=== PATIENT | female | born 1960 | race Caucasian/White ===

== ENCOUNTER 2018-05-14 20:08 | Emergency (ER) | payer OTHER ==
[2018-05-14] MEDS ORDERED: diphenhydrAMINE 50 MG/ML SDV IVPUSH ONE (20:11)
[2018-05-14] MEDS ORDERED: LORazepam 2 MG/ML SDV IVPUSH ONE (20:11)
[2018-05-14] MEDS ORDERED: Metoclopramide 10 MG/2 ML SDV IVPUSH ONE (20:11)
--- NOTE | 2018-05-14 20:14 | EDM.PDOCBH ---
ED HPI GENERAL MEDICAL PROBLEM - General Chief Complaint: Behavioral/Psych Stated Complaint: [facility] Time Seen by Provider: 05/14/18 20:10 Source of Information: Reports: Patient, EMS History Limitations: Reports: No Limitations, Other (intial response was only a groan. She then would speak. Apologetic. ) - History of Present Illness INITIAL COMMENTS - FREE TEXT/NARRATIVE: 57-year-old female brought to the ED per [place] ambulance. He recalled to home in [place] where patient was found to be exhibiting altered level of consciousness. History was that she had fallen earlier in the day with contusion to the right occipital scalp. She has been drinking wine this evening at least 2 large glasses. She appeared to be dysarthric more than one would expect from the amount of alcohol reportedly ingested. Paramedics also identified her blood pressure be very high 180/120. Decision made over the phone to treat her conservatively and we would address the hypertension when she got here. Initially patient only moan and groan but then once I indicated that was much response she then began able to talk fairly normally. She was quite apologetic about her behavior. Paramedics indicate she was dispensing dry heaving and retching almost all the way from [place] to [place]. She has received Zofran 12 mg IV en route to [place]. Emesis was bilious without blood. Patient is alert and able to answer questions appropriately although speech is dysarthric. She does smell strongly of alcohol. Onset: Today Onset Date: 05/14/18 Onset Time: 18:45 Duration: Minutes: Location: Reports: Other Quality: Reports: Other (Reported fall at home earlier this evening with contusion to the right occipital scalp without reported loss of conscious.) Severity: Moderate (Intractable nausea and vomiting associated with hypertension.) Improves with: Reports: Other (She seems to be better in terms of the nausea and vomiting after Zofran has been given repeatedly by paramedics en route to [place]. I believe 12 mg of Zofran has been administered) Worsens with: Reports: None Context: Reports: Other (Bone essentially passed out at home and exhibiting altered level of consciousness. Was unclear if she may have taken too much gabapentin in combination with alcohol use.). Denies: Activity, Exercise, Sick Contact Associated Symptoms: Reports: Confusion ( 4 list of her medications are not yet available.), Nausea/Vomiting, Other (Altered level of consciousness moaning and groaning primarily.). Denies: Chest Pain, Cough, cough w sputum, Malaise Treatments [employer]: Reports: Other (see below) (Paramedics apparently gave her Zofran 12 mg IV en route to [place]) - Related Data Allergies Allergy/AdvReac Type Severity Reaction Status Date / Time No Known Allergies Allergy Verified 05/14/18 20:14 Home Meds: Home Meds Citalopram [Citalopram HBr] 20 mg PO DAILY 05/14/18 [History] Gabapentin [Neurontin] 300 mg PO BID 05/14/18 [History] Levothyroxine [Synthroid] 50 mcg PO ACBREAKFAST 05/14/18 [History] Pravastatin [Pravachol] 40 mg PO DAILY 05/14/18 [History] Past Medical History Cardiovascular History: Reports: Hypertension Psychiatric History: Reports: Anxiety, Depression, Other (See Below) (Alcohol abuse) Social & Family History - Living Situation & Occupation Living situation: Reports: Single Occupation: Unemployed ED ROS GENERAL - Review of Systems Review Of Systems: See Below Constitutional: Reports: Malaise, Weakness, Fatigue, Decreased Appetite. Denies : Fever, Chills HEENT: Reports: Other (Fall at home earlier tonight. Contusion right occipital scalp) Respiratory: Reports: Cough. Denies: Shortness of Breath, Wheezing, Pleuritic Chest Pain Cardiovascular: Reports: Blood Pressure Problem, Dyspnea on Exertion. Denies: Chest Pain, Claudication, Orthopnea Endocrine: Reports: Fatigue GI/Abdominal: Reports: Nausea, Vomiting (Intractable nausea and vomiting tonight. This postdates a fall at home earlier in the evening injuring her right occipital sscalp.) : Reports: Frequency Musculoskeletal: Reports: Back Pain, Leg Pain Skin: Reports: No Symptoms Neurological: Reports: Confusion, Trouble Speaking (Dysarthric speech), Difficulty Walking, Weakness. Denies: Headache (Mildly acutely confused but appears intoxicated this time), Numbness, Syncope, Tingling Psychiatric: Reports: Anxiety, Depression ED EXAM, BEHAVIORAL HEALTH - Physical Exam Exam: See Below Exam Limited By: Intoxication (I'll strongly of alcohol and dysarthric speech.) General Appearance: Anxious, Lethargic, Mild Distress (Mildly lethargic. White anxious. Very histrionic presentation.) Eye Exam: Bilateral Eye: Nystagmus (Bilateral on lateral gaze.) Ears: Normal TMs Nose: Normal Inspection Throat/Mouth: Normal Inspection, Normal Oropharynx, Other Head: Other (Tongue is mildly dry and coated breath smells strongly of alcohol. Have a small hematoma 2 cm over the right occipital prominence on examination.) Neck: Normal Inspection ( Minimal tenderness.), Supple, Non-Tender. No: Lymphadenopathy (L), Lymphadenopathy (R) Respiratory/Chest: Lungs Clear, Normal Breath Sounds, Chest Non-Tender, Respiratory Distress, Other Cardiovascular: Normal Peripheral Pulses (No evidence of chest wall injury.), Regular Rate, Rhythm, No Edema, No Gallop, No Murmur GI/Abdominal: Normal Bowel Sounds, Soft, Non-Tender, No Organomegaly, No Abnormal Bruit, No Mass, Pelvis Stable, Other (No peritoneal signs. No surgical scars.) Back Exam: Normal Inspection, Decreased Range of Motion. No: CVA Tenderness (L) , CVA Tenderness (R) Extremities: Normal Inspection, Normal Range of Motion, Non-Tender, No Pedal Edema, Other (No apparent injuries to either upper or lower extremities.) Neurological: Disoriented to Time. No: Extensor Response to Pain, Flexor Response to Pain, Withdraws to Pain, Dysarthria, Receptive Aphasia, Expressive Aphasia, Total Aphasia, Facial Palsy (R), Facial Palsy (L), Facial Palsy w Forehead Psychiatric: Restless, Tearful, Agitated, Other (Anxious and histrionic.) Skin Exam: Warm, Dry, Intact, Normal color, No rash EKG INTERPRETATION EKG Date: 05/14/18 Time: 20:47 Rhythm: NSR Rate (Beats/Min): 70 Blessing: Normal P-Wave: Present QRS: Other (Decreased voltage in the precordial leads with delayed transition. Early R-wave transition V2 consider septal hypertrophy) ST-T: Normal QT: Prolonged EKG Interpretation Comments: Borderline ECG COURSE, BEHAVIORAL HEALTH COMP - Course Vital Signs: Last Vital Signs Temp 36.4 C 05/14/18 20:09 Pulse 67 05/14/18 20:09 Resp 18 05/14/18 20:09 BP 133/87 05/14/18 20:09 Pulse Ox 96 05/14/18 20:09 Orders, Labs, Meds: Active Orders 24 hr Category Date Time Status Blood Glucose Check, Bedside [RC] ONETIME Care 05/14/18 20:12 Active EKG Documentation Completion [RC] STAT Care 05/14/18 20:12 Active Head wo Cont [CT] Stat Exams 05/14/18 20:13 Taken DRUG SCREEN, URINE [URCHEM] Stat Lab 05/14/18 20:12 Ordered GABAPENTIN, SERUM [REF] Stat Lab 05/14/18 20:25 Received Laboratory Tests 05/14/18 05/14/18 05/14/18 Range/Units 20:23 20:25 20:25 WBC 12.50 H (3.98-10.04) K/mm3 RBC 4.68 (3.98-5.22) M/mm3 Hgb 14.7 (11.2-15.7) gm/L Hct 43.8 (34.1-44.9) % MCV 93.6 (79.4-94.8) fl MCH 31.4 (25.6-32.2) pg MCHC 33.6 (32.2-35.5) g/dl RDW Std Deviation 45.9 (36.4-46.3) fL Plt Count 307 (182-369) K/mm3 MPV 9.7 (9.4-12.3) fl Neutrophils % (Manual) 69 H (40-60) % Band Neutrophils % 0 (0-10) % Lymphocytes % (Manual) 18 L (20-40) % Atypical Lymphs % 0 % Monocytes % (Manual) 8 (2-10) % Eosinophils % (Manual) 4 (0.7-5.8) % Basophils % (Manual) 1 (0.1-1.2) Platelet Estimate Adequate Plt Morphology Comment Normal RBC Morph Comment Normal PT (9.5-12.1) SECONDS INR APTT (24-31) SECONDS Sodium 141 (136-145) mEq/L Potassium 3.2 L (3.5-5.1) mEq/L Chloride 103 (98-107) mEq/L Carbon Dioxide 26 (21-32) mEq/L Anion Gap 15.2 H (5-15) BUN 6 L (7-18) mg/dL Creatinine 0.7 (0.55-1.02) mg/dL Est Cr Clr Drug Dosing 73.35 mL/min Estimated GFR (MDRD) > 60 (>60) mL/min BUN/Creatinine Ratio 8.6 L (14-18) Glucose 119 H (74-106) mg/dL POC Glucose 102 (70-105) mg/dL Calcium 9.1 (8.5-10.1) mg/dL Magnesium 2.1 (1.8-2.4) mg/dl Total Bilirubin 0.7 (0.2-1.0) mg/dL AST 18 (15-37) U/L ALT 19 (14-59) U/L Alkaline Phosphatase 122 H (46-116) U/L Total Protein 7.2 (6.4-8.2) g/dl Albumin 3.7 (3.4-5.0) g/dl Globulin 3.5 gm/dL Albumin/Globulin Ratio 1.1 (1-2) Ethyl Alcohol 0.20 (0.00) gm% 05/14/18 Range/Units 20:25 WBC (3.98-10.04) K/mm3 RBC (3.98-5.22) M/mm3 Hgb (11.2-15.7) gm/L Hct (34.1-44.9) % MCV (79.4-94.8) fl MCH (25.6-32.2) pg MCHC (32.2-35.5) g/dl RDW Std Deviation (36.4-46.3) fL Plt Count (182-369) K/mm3 MPV (9.4-12.3) fl Neutrophils % (Manual) (40-60) % Band Neutrophils % (0-10) % Lymphocytes % (Manual) (20-40) % Atypical Lymphs % % Monocytes % (Manual) (2-10) % Eosinophils % (Manual) (0.7-5.8) % Basophils % (Manual) (0.1-1.2) Platelet Estimate Plt Morphology Comment RBC Morph Comment PT 10.4 (9.5-12.1) SECONDS INR 0.95 APTT 28 (24-31) SECONDS Sodium (136-145) mEq/L Potassium (3.5-5.1) mEq/L Chloride (98-107) mEq/L Carbon Dioxide (21-32) mEq/L Anion Gap (5-15) BUN (7-18) mg/dL Creatinine (0.55-1.02) mg/dL Est Cr Clr Drug Dosing mL/min Estimated GFR (MDRD) (>60) mL/min BUN/Creatinine Ratio (14-18) Glucose (74-106) mg/dL POC Glucose (70-105) mg/dL Calcium (8.5-10.1) mg/dL Magnesium (1.8-2.4) mg/dl Total Bilirubin (0.2-1.0) mg/dL AST (15-37) U/L ALT (14-59) U/L Alkaline Phosphatase (46-116) U/L Total Protein (6.4-8.2) g/dl Albumin (3.4-5.0) g/dl Globulin gm/dL Albumin/Globulin Ratio (1-2) Ethyl Alcohol (0.00) gm% Medications Discontinued Medications Generic Name Dose Route Start Last Admin Trade Name Freq PRN Reason Stop Dose Admin Diphenhydramine HCl 25 mg 05/14/18 20:11 05/14/18 20:33 Benadryl IVPUSH 05/14/18 20:12 25 mg ONETIME ONE Administration Dextrose/Sodium Chloride 1,000 mls @ 125 mls/hr 05/14/18 20:15 05/14/18 20:31 Dextrose 5%-Normal Saline IV 125 mls/hr ASDIRECTED KELLY Administration Lorazepam 1 mg 05/14/18 20:11 05/14/18 20:50 Ativan IVPUSH 05/14/18 20:12 1 mg ONETIME ONE Administration Metoclopramide HCl 7.5 mg 05/14/18 20:11 05/14/18 20:31 Reglan IVPUSH 05/14/18 20:12 7.5 mg ONETIME ONE Administration Re-Assessment/Re-Exam: 57-year-old female presents to the ED per ambulance from [place]. They were called to home due to the late experiencing altered level of consciousness. History of fall within the last 4 hours with injury to the right occipital scalp. She had intractable nausea and vomiting almost all the way from [place] to [place]. Associated marked hypertension with BP 180/120. This is settling down since her vomiting has come under control with intravenous Zofran 4 mg I believe 3 doses. Clinically she is intoxicated by alcohol. She also apparently takes gabapentin 3 times daily for chronic lower back pain and neuropathy in her extremities. Her other med list are being assimilated. At this time she is alert she is able to converse. She is anxious and histrionic. Plan routine labs to include serum ethanol level. ECG will be done. CT head will be done. She'll be given Reglan 7.5 mg IV with Benadryl 25 mg IV to prevent any dystonic reaction. Also Ativan 1 mg IV due to acute anxiety. Re-Assessment/Re-Exam Date: 05/14/18 (21:00: Labs are back revealing a white count of 12.50. 69% neutrophils with no band cells reported. Hemoglobin is 14.7 with hematocrit of 43.8. Platelet count is normal 307,000. PT is 10.4 with an INR of 0.95. PT is also normal at 28. Sodium is 141 with a potassium slightly low at 3.2. Cortisol 3 with a bicarbonate 26. And a gap is 15.2. BUNs 6 with a creatinine of 0.7. Far as greater than 60. Glucose is 119. Calcium is 2.1. Liver function is normal other than slightly elevated alk phosphatase of 122. Blood alcohol is 0.20 g percent) Re-Assessment/Re-Exam Time: 22:19 (Patient remains quite restless. Note she would not hold still for the initial propose CT scan and therefore had another milligram of Ativan given intravenously. This facilitated the procedure. The CT of the brain is essentially normal. There are mild degenerative changes in the basal ganglia bilaterally. There is no intracranial hemorrhage or evidence of skull fracture. She'll therefore be discharged home in the care of her son I believe.) Departure - Departure Time of Disposition: 22:20 Disposition: Home, Self-Care 01 Condition: Fair Clinical Impression: Minor closed head injury Nausea and vomiting Qualifiers: Vomiting type: bilious vomiting Qualified Code(s): R11.14 - Bilious vomiting Acute alcohol intoxication Qualifiers: Complication of substance-induced condition: uncomplicated Qualified Code(s): F10.929 - Alcohol use, unspecified with intoxication, unspecified - Discharge Information *PRESCRIPTION DRUG MONITORING PROGRAM REVIEWED*: No *COPY OF PRESCRIPTION DRUG MONITORING REPORT IN PATIENT TAVIA: No Instructions: Alcohol Use Disorder, Nausea, Adult Referrals: PCP,Unknown [Ordering Only Provider] - Forms: ED Department Discharge Additional Instructions: Evaluation the emergency room tonight in regards to altered level of consciousness with intractable nausea and [place] He received medication for nausea and vomiting by paramedics and also in the ED to stop vomiting. History of recent fall with closed head injury to the back of your right scalp. Mild bruise appreciated in this area. CT of the head proved to be normal with no signs of any intracranial bleeding or skull fracture to contribute to recurrent nausea and vomiting. Lab work essentially turned out to be normal other than mildly low potassium level which is secondary to alcohol use. Blood alcohol level was 0.20 g percent. Note the legal limit to drive a vehicle is 0.08 g percent. Thus bizarre behavior tonight is likely secondary to interaction of alcohol with gabapentin medication. Do not take gabapentin medication tonight. Home to sleep. Resume clear fluids and regular diet as able tomorrow. - My Orders Last 24 Hours: My Active Orders 05/14/18 20:12 Blood Glucose Check, Bedside [RC] ONETIME EKG Documentation Completion [RC] STAT DRUG SCREEN, URINE [URCHEM] Stat 05/14/18 20:13 Head wo Cont [CT] Stat 05/14/18 20:25 GABAPENTIN, SERUM [REF] Stat - Assessment/Plan Last 24 Hours: My Active Orders 05/14/18 20:12 Blood Glucose Check, Bedside [RC] ONETIME EKG Documentation Completion [RC] STAT DRUG SCREEN, URINE [URCHEM] Stat 05/14/18 20:13 Head wo Cont [CT] Stat 05/14/18 20:25 GABAPENTIN, SERUM [REF] Stat
[2018-05-14] MEDS ORDERED: Dextrose 5%-0.9% NaCl 1,000 ML IV SCH (20:15)
--- NOTE | 2018-05-15 11:47 | CT ---
Head CT Technique: Multiple axial sections through the brain were obtained. Intravenous contrast was not utilized. Technologist's note: Patient was noncompliant, unable to hold still, multiple attempts made at a repeat scan, none were successful Motion artifact is identified particularly on the superior cuts. Findings: Ventricles along with basal cisterns and sulci over the convexities are mildly prominent. No definite abnormal parenchymal densities are seen. No definite intracranial hemorrhage is seen. No midline shift or mass effect is seen. Bone window settings were reviewed which are grossly unremarkable. Impression: 1. Significant motion artifact. Within this limitation, nothing acute is definitely seen. Diagnostic code #2 I agree with preliminary report issued by [facility] ([facility] report finalized on 05/14/18, 11:10 PM Central Time)
== END 2018-05-14 22:30 | disposition home or self-care (01) ==
LOC: JD.ED 20:08
DX: S09.90XA Unspecified injury of head, initial encounter (principal); S00.03XA Contusion of scalp, initial encounter; R41.82 Altered mental status, unspecified; R11.14 Bilious vomiting; F10.129 Alcohol abuse with intoxication, unspecified; I10 Essential (primary) hypertension; F41.9 Anxiety disorder, unspecified; F32.9 Major depressive disorder, single episode, unspecified; Z79.899 Other long term (current) drug therapy; F17.210 Nicotine dependence, cigarettes, uncomplicated; W19.XXXA Unspecified fall, initial encounter; Y90.7 Blood alcohol level of 200-239 mg/100 ml
CPT/HCPCS: 36415; 70450; 80053; 80171; 82962; 83735; 85007; 85027; 85610; 85730; 93005; 96361; 96374; 96375; 99285; G0480; J1200; J2060; J2765; J7042; 93010

== ENCOUNTER 2022-02-01 22:00 | Emergency (ER) | payer OTHER ==
[2022-02-01] MEDS ORDERED: Sodium Chloride 0.9% 1,000 ML IV SCH (23:00)
[2022-02-01 23:22] LABS: CORONAVIRUS COVID-19 NAA NEGATIVE (NEGATIVE)
[2022-02-01 23:26] LABS: ESTIMATED GFR 64 mL/min (>60)
[2022-02-02] MEDS ORDERED: Potassium Chloride 20 MEQ Tab.ER PO ONE (00:36)
[2022-02-02] MEDS ORDERED: Sodium Chloride 0.9% 1,000 ML IV ONE (00:36)
[2022-02-02] MEDS ORDERED: LORazepam 2 MG/ML SDV IVPUSH STA (01:50)
[2022-02-02] MEDS ORDERED: Ondansetron 4 MG/2 ML SDV IVPUSH ONE (01:51)
[2022-02-02] MEDS ORDERED: Levothyroxine 50 MCG Tab PO STA (03:49)
== END 2022-02-02 04:41 | disposition home or self-care (01) ==
LOC: JD.ED 22:00
DX: E87.2 Acidosis (principal); E87.6 Hypokalemia; R73.9 Hyperglycemia, unspecified; E78.00 Pure hypercholesterolemia, unspecified; E03.9 Hypothyroidism, unspecified; F17.210 Nicotine dependence, cigarettes, uncomplicated; Z79.899 Other long term (current) drug therapy; Z20.822 Contact with and (suspected) exposure to COVID-19
CPT/HCPCS: 0241U; 36415; 71045; 80053; 81001; 83605; 83735; 84443; 84484; 85007; 85027; 85379; 86140; 87040; 93005; 96361; 96374; 96375; 99285; A9270; J2060; J2405; J7030; 93010; 99284

== ENCOUNTER 2022-10-14 12:57 | Emergency (ER) | payer MEDICAID ==
[2022-10-14] MEDS ORDERED: Ondansetron 4 MG/2 ML SDV IVPUSH ONE (14:12)
[2022-10-14] MEDS ORDERED: HYDROmorphone 0.5 MG/0.5 ML Syringe IVPUSH ONE (14:12)
[2022-10-14] MEDS ORDERED: Sodium Chloride 0.9% 10 ML Syringe FLUSH ONE (14:43)
[2022-10-14] MEDS ORDERED: Iopamidol 612 MG/ML 100 ML Bottle IVPUSH ONE (14:43)
== END 2022-10-14 16:45 | disposition home or self-care (01) ==
LOC: JD.ED 12:57
DX: K52.9 Noninfective gastroenteritis and colitis, unspecified (principal); K21.9 Gastro-esophageal reflux disease without esophagitis; E03.9 Hypothyroidism, unspecified; E78.00 Pure hypercholesterolemia, unspecified; Z79.899 Other long term (current) drug therapy; Z72.0 Tobacco use
CPT/HCPCS: 36415; 74177; 80053; 81001; 83690; 85025; 86140; 96374; 96375; 99284; J1170; J2405; J3490; Q9967